=== PATIENT | female | born 1955 | race Caucasian/White ===

== ENCOUNTER 2022-07-28 16:06 | Emergency (ER) | payer MEDICARE ==
[~2022-07-28] VITALS: Ht 162.6 cm; Wt 73.0 kg
[2022-07-28] MEDS ORDERED: TRAMADOL HYDROC50 M1 PO (18:51)
[2022-07-28] MEDS ORDERED: ZOFRAN4 MG/TAB PO (18:51)
[2022-07-28 19:19] VITALS: BP 120/80
== END 2022-07-28 19:24 | disposition home or self-care (01) ==
LOC: ED 16:06
DX: M25.561 Pain in right knee (principal)